=== PATIENT | female | born 1990 | race Asian ===

== ENCOUNTER → 2018-11-21 | Outpatient (CLI) | payer OTHER ==
[~2018-11-21] MED LIST: IBUP800 PO; Transderm-Scop1 EACH TD; Verotin-Gr Cap1 EACH PO
== END | disposition home or self-care (01) ==
LOC: LAB 08:52 → LAB SHORT 08:52
DX: Z34.00 Encounter for supervision of normal first pregnancy, unspecified trimester (principal)
CPT/HCPCS: 87081; 87653

== ENCOUNTER 2018-12-17 08:59 | Inpatient (IN) | payer OTHER ==
[~2018-12-17] VITALS: Ht 147.3 cm; Wt 0.2 kg
[2018-12-17] MEDS ORDERED: Verotin-Gr Cap1 EACH PO (10:22)
[2018-12-17] MEDS ORDERED: Transderm-Scop1 EACH TD (10:23)
[2018-12-17 10:38] LABS: BASOPHILS ABSOLUTE AUTO 0.01 K/mm3 (0.00-0.23); BASOPHILS PERCENT AUTO 0 % (0-2); EOSINOPHILS ABSOLUTE AUTO 0.03 K/mm3 (0.00-0.68); EOSINOPHILS PERCENT AUTO 0 % (0-6); Hematocrit 36.9 % (33.0-51.0); Hemoglobin 12.1 g/dL (11.5-16.0); IMMATURE GRAN ABSOLUTE AUTO 0.03 K/mm3 (0.00-0.10); IMMATURE GRAN PERCENT AUTO 0 % (0-1); LYMPHOCYTES ABSOLUTE AUTO 1.62 K/mm3 (0.84-5.20); LYMPHOCYTES PERCENT AUTO 24 % (21-46); MONOCYTES ABSOLUTE AUTO 0.55 K/mm3 (0.16-1.47); MONOCYTES PERCENT AUTO 8 % (4-13); Mean Corpuscular HGB 30.2 pg (26.0-34.0); Mean Corpuscular HGB Conc 32.8 g/dL (31.5-36.5); Mean Corpuscular Volume 92 fL (80-100); NEUTROPHILS ABSOLUTE AUTO 4.45 K/mm3 (1.96-9.15); NEUTROPHILS PERCENT AUTO 67 % (41-73); Platelet Count 295 K/mm3 (150-400); RDW Coefficient Variation 12.9 % (11.7-14.2); Red Blood Cell Count 4.01 M/mm3 (3.80-5.20); White Blood Cell Count 6.69 K/mm3 (4.00-11.30)
[2018-12-18 05:51] LABS: Hematocrit 34.8 % (33.0-51.0); Hemoglobin 11.3 g/dL (11.5-16.0); Mean Corpuscular HGB 30.2 pg (26.0-34.0); Mean Corpuscular HGB Conc 32.5 g/dL (31.5-36.5); Mean Corpuscular Volume 93 fL (80-100); Mean Platelet Volume 9.6 fL (9.1-12.4); Platelet Count 273 K/mm3 (150-400); RDW Coefficient Variation 12.7 % (11.7-14.2); RDW Standard Deviation 43.5 fL (35.1-46.3); Red Blood Cell Count 3.74 M/mm3 (3.80-5.20); White Blood Cell Count 13.67 K/mm3 (4.00-11.30)
--- NOTE | 2018-12-18 19:49 | NUR ---
extra hygiene supplies given, pads and underwear along with baby wipes and clean linens. fresh water given at this time.
[2018-12-19] MEDS ORDERED: IBUP800 PO (09:34)
--- NOTE | 2018-12-19 14:36 | NUR ---
CONSULT PRIOR TO DISCHARGE. DAD IS TRANSLATING FOR MOM WITH BF INSTRUCTIONS. BABY COORDINATES SUCK WELL ON A FINGER. MOM ABLE TO SELF EBM WELL. INSTRUCT/DEMO POSITIONING TO ASSIST WITH OBTAINING A DEEPER ASYMETRIC LATCH AND THEN FURTHER WIDENING THE LATCH FOR COMFORT AND BETTER TRANSFER. MOM IS HANDLING BABY WELL. BABY IS SLEEPY, HAD FORMULA AN HOUR AGO. INSTRUCT TO STOP USING FORMULA, AND PUT BABY TO BF MORE OFTEN, ANYTIME SHE SHOWS HUNGER CUES. INSTRUCT IN CHANGES TO EXPECT DURING THE FIRST WEEK AND REFERRED TO BF BROCHURE FOR PHOTOS AND INFORMATION. QUESTIONS ANSWERED.
--- NOTE | 2018-12-19 15:56 | NUR ---
DISCHARGE SUMMARY PT DISCAHRGED TO HOME WITH SPOUSE AND BABY. DISCHARGE INSTRUCTIONS COVERED WITH FATHER OF BABY DUE TO PATIENT PREFERENCE AND LANGUAGE BARRIER. TRANSLATION PHONE USED FOR POST- ASSESSMENT THIS MORNING. ALL QUESTIONS ANSWERED. PT EDUCATED ABOUT MEDICATIONS, AND WHEN TO FOLLOW UP. SPOUSE VERBALIZED UNDERSTANDING OF ALL MATERIAL.
== END 2018-12-19 14:11 | disposition home or self-care (01) | DRG 807 ==
LOC: OBS 08:59 → BC 08:59 → OBS 09:40 → BC 22:54
PROVIDERS: ADMIT Obstetrics & Gynecology
PROC: 10E0XZZ Delivery of Products of Conception, External Approach (ICD-10-PCS; principal; 2018-12-17)
PROC: 0KQM0ZZ Repair Perineum Muscle, Open Approach (ICD-10-PCS; 2018-12-17)
PROC: 3E0R3BZ Introduction of Anesthetic Agent into Spinal Canal, Percutaneous Approach (ICD-10-PCS; 2018-12-17)
DX: O36.5930 Maternal care for other known or suspected poor fetal growth, third trimester, not applicable or unspecified (principal); Z37.0 Single live birth; Z3A.39 39 weeks gestation of pregnancy; O70.1 Second degree perineal laceration during delivery; O69.81X0 Labor and delivery complicated by cord around neck, without compression, not applicable or unspecified
CPT/HCPCS: 36415; 51702; 85025; 85027; J1885; J2590; J3010; J7120

== ENCOUNTER → 2021-10-05 | Outpatient (CLI) | payer OTHER | LOC: LAB SHORT 14:10 → LAB 14:10 | DX: Z34.83 Encounter for supervision of other normal pregnancy, third trimester (principal) | CPT/HCPCS: 87081; 87150 ==

== ENCOUNTER 2021-10-27 07:27 | Inpatient (IN) | payer OTHER ==
[~2021-10-27] VITALS: Ht 172.7 cm; Wt 80.4 kg
[2021-10-27 08:26] LABS: BASOPHILS ABSOLUTE AUTO 0.01 K/mm3 (0.00-0.23); BASOPHILS PERCENT AUTO 0 % (0-2); EOSINOPHILS ABSOLUTE AUTO 0.03 K/mm3 (0.00-0.68); EOSINOPHILS PERCENT AUTO 0 % (0-6); Hematocrit 35.9 % (33.0-51.0); IMMATURE GRAN ABSOLUTE AUTO 0.03 K/mm3 (0.00-0.10); IMMATURE GRAN PERCENT AUTO 0 % (0-1); LYMPHOCYTES ABSOLUTE AUTO 1.86 K/mm3 (0.84-5.20); LYMPHOCYTES PERCENT AUTO 23 % (21-46); MONOCYTES ABSOLUTE AUTO 0.85 K/mm3 (0.16-1.47); MONOCYTES PERCENT AUTO 10 % (4-13); Mean Corpuscular HGB 30.2 pg (26.0-34.0); Mean Corpuscular HGB Conc 33.4 g/dL (31.5-36.5); Mean Corpuscular Volume 90 fL (80-100); Mean Platelet Volume 10.1 fL (9.1-12.4); NEUTROPHILS ABSOLUTE AUTO 5.36 K/mm3 (1.96-9.15); NEUTROPHILS PERCENT AUTO 66 % (41-73); Platelet Count 315 K/mm3 (150-400); RDW Coefficient Variation 13.2 % (11.7-14.2); RDW Standard Deviation 43.5 fL (35.1-46.3); Red Blood Cell Count 3.98 M/mm3 (3.80-5.20); White Blood Cell Count 8.14 K/mm3 (4.00-11.30)
[2021-10-27 09:40] LABS: Influenza A, PCR NEGATIVE (NEGATIVE); Influenza B, PCR NEGATIVE (NEGATIVE); Resp Syncytial Virus, PCR NEGATIVE (NEGATIVE); SARS-Cov-2 (COVID-19) PCR, MMC NEGATIVE (NEGATIVE)
--- NOTE | 2021-10-28 13:29 | NUR ---
BANDS MATCHED. DISCHARGED TO HOME
--- NOTE | 2021-10-31 10:29 | NUR ---
PPFU - MOM DIDN'T COME - DAD BROUGHT BABY ONLY - PER DAD MOM DOING WELL DENIED ISSUES - INSTRUCTED TO HAVE PATIENT CALL DR DIAZ IF ANY ISSUES AND TO GO TO FOLLOW UP PER DAD APPOINTMENT ALREADY MADE
== END 2021-10-28 13:25 | disposition home or self-care (01) | DRG 807 ==
LOC: OBS 07:27 → BC 07:33 → OBS 07:52 → BC 07:54
PROVIDERS: ADMIT Obstetrics & Gynecology
PROC: 10E0XZZ Delivery of Products of Conception, External Approach (ICD-10-PCS; principal; 2021-10-27)
PROC: 0KQM0ZZ Repair Perineum Muscle, Open Approach (ICD-10-PCS; 2021-10-27)
PROC: 10907ZC Drainage of Amniotic Fluid, Therapeutic from Products of Conception, Via Natural or Artificial Opening (ICD-10-PCS; 2021-10-27)
PROC: 3E0R3BZ Introduction of Anesthetic Agent into Spinal Canal, Percutaneous Approach (ICD-10-PCS; 2021-10-27)
PROC: 00HU33Z Insertion of Infusion Device into Spinal Canal, Percutaneous Approach (ICD-10-PCS; 2021-10-27)
DX: O70.1 Second degree perineal laceration during delivery (principal); Z37.0 Single live birth; Z3A.38 38 weeks gestation of pregnancy; Z20.822 Contact with and (suspected) exposure to COVID-19; Z79.899 Other long term (current) drug therapy
CPT/HCPCS: 0241U; 36415; 51702; 59025; 85025; 86850; 86900; 86901; A9270; J1885; J2001; J2590; J3010; J7120